=== PATIENT | male | born 1940 | race Caucasian/White ===

== ENCOUNTER → 2017-07-10 | Outpatient (CLI) | payer MEDICARE, OTHER | END | disposition home or self-care (01) | LOC: GMAB 10:38 | PROVIDERS: ATTEND Family Medicine | DX: Z12.5 Encounter for screening for malignant neoplasm of prostate (principal); I10 Essential (primary) hypertension | CPT/HCPCS: 84443; G0103 ==

== ENCOUNTER → 2018-02-19 | Outpatient (CLI) | payer MEDICARE, OTHER ==
--- NOTE | 2018-02-19 19:38 | US ---
EXAM DESCRIPTION: Abdomen,Complete CLINICAL HISTORY: ABN LIVER FUNCTION COMPARISON: None Available. TECHNIQUE: Complete abdominal ultrasound FINDINGS: Visualized portions of the pancreas are unremarkable. No peripancreatic fluid. Bowel gas obscures some areas. Normal caliber of the aorta. Arteriosclerotic changes in the aorta. Normal appearance of the inferior vena cava. Liver parenchyma is homogeneous in texture with normal echogenicity. No liver mass or intrahepatic bile duct dilatation. No liver surface irregularity. Normal appearance of hepatic veins and portal vein. Gallbladder is surgically absent. Common bile duct is normal in caliber measuring five mm. The right kidney measures 9.1 cm in length. Normal renal cortical echogenicity. There is diffuse cortical thinning consistent with scarring. No right renal mass, shadowing stone or cyst. There is no hydronephrosis. Spleen is normal in size. No focal splenic lesion. The left kidney measures 11 cm in length. Mildly increased renal cortical echogenicity. There is diffuse cortical thinning consistent with chronic scarring or atrophy. Correlate with renal function tests. No left renal mass, shadowing stone or cyst. There is no hydronephrosis. IMPRESSION: Bilateral renal cortical thinning consistent with scarring. Correlate with renal function tests. Otherwise no evidence of acute upper abdominal process. Electronically signed by: Freddy Salgado MD 02/19/2018 7:37 PM CDT
== END ==
LOC: US 08:05
PROVIDERS: ATTEND Family Medicine
DX: R94.5 Abnormal results of liver function studies (principal); N18.3 Chronic kidney disease, stage 3 (moderate)

== ENCOUNTER → 2018-08-22 | Outpatient (CLI) | payer OTHER ==
--- NOTE | 2018-08-22 17:25 | CT ---
EXAM DESCRIPTION: CT brain without contrast. CLINICAL HISTORY: SUDDEN IDIOPATHIC HEARING LOSS COMPARISON: December 03, 2012 TECHNIQUE: Contiguous axial images of the brain were obtained without the administration of intravenous contrast.This exam was performed according to our departmental dose-optimization program, which includes automated exposure control, adjustment of the mA and/or kV according to patient size and/or use of iterative reconstruction technique. FINDINGS: There is no acute intracranial hemorrhage or mass effect. Areas of low attenuation in the periventricular and subcortical white matter are nonspecific but suggestive of small vessel disease. There is generalized atrophy. Prominence of the ventricular system could be secondary to central atrophy. This is not significantly changed compared with the prior exam.. There is adequate galvan-white matter differentiation. There is no skull fracture. The visualized paranasal sinuses and mastoid air cells are within normal limits. There is atherosclerosis. IMPRESSION: Stable examination. No acute intracranial abnormalities. Electronically signed by: Joseph Avelar MD 08/22/2018 5:23 PM CDT
== END ==
LOC: CT 16:57
PROVIDERS: ATTEND Nurse Practitioner Family
DX: H91.23 Sudden idiopathic hearing loss, bilateral (principal)

== ENCOUNTER → 2018-08-28 | Outpatient (CLI) | payer OTHER | LOC: GMAE 14:52 | PROVIDERS: ATTEND Family Medicine | DX: H91.23 Sudden idiopathic hearing loss, bilateral (principal) ==

== ENCOUNTER 2018-09-08 05:54 | Day surgery (SDC) | payer OTHER ==
[2018-09-08] MEDS ORDERED: TROP 1%/CYCLOPEN 1%/PHENYL 2% DROPS OPHTH ONE (05:55)
[2018-09-08] MEDS ORDERED: MIDAZOLAM INJ 2 MG/2 ML VIAL ONE (06:50)
[2018-09-08] MEDS ORDERED: PROPARACAINE 0.5% OPHTH SOL 15 ML BTTL LEFT_EYE ONE (15:40)
[2018-09-08] MEDS ORDERED: DEXAMETHASONE 0.1% OPHTH SOL 1 DROP LEFT_EYE ONE ×2 (15:52→16:10)
[2018-09-08] MEDS ORDERED: LIDOCAINE 1% MPF 5 ML VIAL INJ ONE (15:52)
[2018-09-08] MEDS ORDERED: BRIMONIDINE 0.2% OPHTH DROPS LEFT_EYE ONE ×2 (15:53→16:10)
[2018-09-08] MEDS ORDERED: TOBRAMYCIN SULF 0.3 % OPHT SOL 1 DROP LEFT_EYE ONE ×2 (15:53→16:10)
== END 2018-09-08 16:42 | disposition home or self-care (01) ==
LOC: AMB 05:54
PROVIDERS: ATTEND Ophthalmology
DX: H25.12 Age-related nuclear cataract, left eye (principal); I10 Essential (primary) hypertension; E11.36 Type 2 diabetes mellitus with diabetic cataract
CPT/HCPCS: 00142; 36416; 66984; 82948; J2250

== ENCOUNTER 2018-09-22 05:46 | Day surgery (SDC) | payer OTHER ==
[2018-09-22] MEDS ORDERED: MIDAZOLAM INJ 2 MG/2 ML VIAL ONE (06:40)
[2018-09-22] MEDS ORDERED: PROPARACAINE 0.5% OPHTH SOL 15 ML BTTL ONE (08:24)
[2018-09-22] MEDS ORDERED: TROP 1%/CYCLOPEN 1%/PHENYL 2% DROPS ONE (08:24)
[2018-09-22] MEDS ORDERED: PROPARACAINE 0.5% OPHTH SOL 15 ML BTTL RIGHT_EYE ONE (10:30)
[2018-09-22] MEDS ORDERED: DEXAMETHASONE 0.1% OPHTH SOL 1 DROP RIGHT_EYE ONE ×2 (10:39→11:01)
[2018-09-22] MEDS ORDERED: LIDOCAINE 1% 2 ML VIAL INJ ONE ×2 (10:39→10:44)
[2018-09-22] MEDS ORDERED: TOBRAMYCIN SULF 0.3 % OPHT SOL 1 DROP RIGHT_EYE ONE ×2 (10:40→11:01)
[2018-09-22] MEDS ORDERED: BRIMONIDINE 0.2% OPHTH DROPS RIGHT_EYE ONE ×2 (10:40→11:01)
== END 2018-09-22 11:35 | disposition home or self-care (01) ==
LOC: AMB 05:46
PROVIDERS: ATTEND Ophthalmology
DX: H25.11 Age-related nuclear cataract, right eye (principal); I10 Essential (primary) hypertension; E11.36 Type 2 diabetes mellitus with diabetic cataract; E66.9 Obesity, unspecified; Z79.82 Long term (current) use of aspirin; Z79.899 Other long term (current) drug therapy; Z79.02 Long term (current) use of antithrombotics/antiplatelets
CPT/HCPCS: 00142; 66984; 82948; J2250

== ENCOUNTER → 2019-08-18 | Outpatient (CLI) | payer OTHER | LOC: GMAE 11:25 | PROVIDERS: ATTEND Family Medicine | DX: Z12.5 Encounter for screening for malignant neoplasm of prostate (principal); I10 Essential (primary) hypertension; E11.22 Type 2 diabetes mellitus with diabetic chronic kidney disease; E78.2 Mixed hyperlipidemia | CPT/HCPCS: 84443; G0103 ==

== ENCOUNTER → 2020-11-23 | Outpatient (CLI) | payer MEDICARE | LOC: GMAE 12:05 | PROVIDERS: ATTEND Family Medicine | DX: Z12.5 Encounter for screening for malignant neoplasm of prostate (principal); I10 Essential (primary) hypertension; E11.22 Type 2 diabetes mellitus with diabetic chronic kidney disease | CPT/HCPCS: 84443; G0103 ==